=== PATIENT | female | born 1980 | race African-American/Black ===

== ENCOUNTER 2017-04-11 07:59 | Emergency (ER) | payer OTHER ==
[~2017-04-11] VITALS: Ht 162.6 cm; Wt 74.0 kg
[2017-04-11 08:01] VITALS: BP 117/69; PULSE 97; RESP 15; TEMP 98.8; O2SAT 100
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
== END 2017-04-11 11:27 | disposition home or self-care (01) ==
LOC: NEPE 07:59
DX: S09.90XA Unspecified injury of head, initial encounter (principal); S16.1XXA Strain of muscle, fascia and tendon at neck level, initial encounter; S80.12XA Contusion of left lower leg, initial encounter; S30.0XXA Contusion of lower back and pelvis, initial encounter; V43.52XA Car driver injured in collision with other type car in traffic accident, initial encounter
CPT/HCPCS: 70450; 71010; 72040; 73660; 84703; 99284